=== PATIENT | female | born 1980 | race Caucasian/White ===

== ENCOUNTER 2018-04-27 22:58 | Emergency (ER) | payer BC ==
[~2018-04-27] VITALS: Ht 167.6 cm; Wt 63.5 kg
[2018-04-27 23:07] VITALS: BP 119/71
[2018-04-27] MEDS: Albuterol ud Inhalation HHN SCH ×2 (23:23→23:40)
[2018-04-27] MEDS: Ipratropium 0.02% Inh Soln 2.5ml UD HHN SCH ×2 (23:23→23:40)
[2018-04-28] MEDS: Albuterol ud Inhalation HHN SCH (00:04)
[2018-04-28] MEDS: Ipratropium 0.02% Inh Soln 2.5ml UD HHN SCH (00:04)
[2018-04-28] MEDS ORDERED: VENTOLIN HFA18 GM INH (00:07)
[2018-04-28] MEDS ORDERED: ALBUTEROL2.5 MG/3 M HHN (00:07)
[2018-04-28 00:16] VITALS: BP_SYST 119; BP_SYST 122; BP_DIAS 54; BP_DIAS 71
--- NOTE | 2018-04-28 01:24 | Emergency Room Report ---
History of Present Illness General Chief Complaint: Asthma Source: Patient Present Illness HPI 38-year-old female presents ED complaining of wheezing times one day. History of asthma states her asthma is likely triggered by lots of dust during her moving. States she ran out of her inhaler. Denies smoking. Denies fevers or chills. Denies cough. No other aggravating relieving factors. Denies any other associated symptoms Allergies: Coded Allergies: No Known Allergies (Unverified , 04/27/18) Patient History Past Medical History: asthma Past Surgical History: none Pertinent Family History: none Social History: Denies: smoking, alcohol use, drug use Last Menstrual Period: 04/24/18 Now: No : 2 Para: 2 Immunizations: UTD Reviewed Nursing Documentation: PMH: Agreed; PSxH: Agreed Nursing Documentation-PMH Past Medical History: No History, Except For Hx Asthma: Yes Review of Systems All Other Systems: negative except mentioned in HPI Physical Exam Vital Signs Date Time Temp Pulse Resp B/P (MAP) Pulse Ox O2 Delivery O2 Flow Rate FiO2 04/27/18 23:01 98.1 89 18 119/71 94 98.1 04/27/18 23:24 Room Air 21 Sp02 EP Interpretation: reviewed, normal General Appearance: no apparent distress, alert, GCS 15, non-toxic Head: normocephalic Eyes: bilateral eye normal inspection, bilateral eye PERRL ENT: normal ENT inspection Neck: normal inspection Respiratory: wheezing Cardiovascular #1: normal inspection Gastrointestinal: normal inspection Rectal: deferred Genitourinary: no CVA tenderness Musculoskeletal: normal inspection Neurologic: alert, oriented x3, responsive, motor strength/tone normal, sensory intact, speech normal Psychiatric: normal inspection Skin: normal inspection Lymphatic: normal inspection Medical Decision Making Diagnostic Impression: Primary Impression: Asthma attack Qualified Codes: J45.901 - Unspecified asthma with (acute) exacerbation ER Course Hospital Course 38-year-old female presents to ED complaining of wheezing Differential diagnoses include: URI, bronchitis, asthma/COPD, pneumonia Clinical course Patient placed on stretcher. After initial history, physical exam reveals a female in no acute distress. Bilateral TM unremarkable. No pharyngeal erythema. No tonsillar exudates. No lymphadenopathy. Mild wheezing noted on exam, no signs of respiratory distress or retractions. Patient given Prednisone and albuterol/atrovent treatment in ED with symptoms improved. Reassurance given Diagnosis - asthma attack Stable and discharged home with prescriptions for albuterol, prednisone. Instructed to followup with PMD. Return to ED if symptoms recur or worsen Last Vital Signs Date Time Temp Pulse Resp B/P (MAP) Pulse Ox O2 Delivery O2 Flow Rate FiO2 04/28/18 00:16 98.1 20 119/71 100 Room Air 21 98.1 04/27/18 23:52 86 Status: improved Disposition: HOME, SELF-CARE Condition: Stable Scripts Albuterol Sulfate* (ALBUTEROL SULFATE HHN*) 2.5 Mg/3 Ml Vial.neb 2.5 MG HHN Q4H PRN for Shortness of Breath, #25 VIAL Prov: Derek Faria MD 04/28/18 Albuterol Sulfate (VENTOLIN HFA) 18 Gm Hfa.aer.ad 2 PUFFS INH EVERY 6 HOURS, #18 GM 0 Refills Prov: Derek Faria MD 04/28/18 Referrals: NOT CHOSEN IPA/,REFERRING (PCP) Patient Instructions: Asthma, Adult Derek Faria MD Apr 28, 2018 01:24
== END 2018-04-28 00:17 | disposition home or self-care (01) ==
LOC: EMR 23:15
DX: J45.901 Unspecified asthma with (acute) exacerbation (principal)
CPT/HCPCS: 94640; 99284; J7512